=== PATIENT | male | born 1985 | race Caucasian/White ===

== ENCOUNTER 2022-02-15 16:36 | Emergency (ER) | payer OTHER ==
[~2022-02-15] VITALS: Ht 195.6 cm; Wt 79.5 kg
[2022-02-15 17:33] VITALS: BP 132/73
== END 2022-02-15 19:48 | disposition home or self-care (01) ==
LOC: EMS 16:40
DX: F19.20 Other psychoactive substance dependence, uncomplicated (principal); F10.20 Alcohol dependence, uncomplicated; F15.10 Other stimulant abuse, uncomplicated; F17.210 Nicotine dependence, cigarettes, uncomplicated; F11.10 Opioid abuse, uncomplicated; I10 Essential (primary) hypertension
CPT/HCPCS: 99281; Z7502